=== PATIENT | male | born 1965 | race Caucasian/White ===

== ENCOUNTER 2023-02-20 13:06 | Inpatient (IN) | payer BC ==
[~2023-02-20] VITALS: Ht 175.3 cm; Wt 62.0 kg
[2023-02-20] VITALS (9 sets, daily range): BP systolic 84–118; BP diastolic 55–80; TEMP 98.2; O2SAT 98–100
[2023-02-20] MEDS ORDERED: VANCOMYCIN IV 1,000 MG in IV DEXTROSE 5% 250 ML IV ONE (13:30)
[2023-02-20] MEDS ORDERED: PIPERACILLIN SODIUM/TAZOBACTAM 3.375 G in IV DEXTROSE 5% 50 ML IV ONE (13:30)
[2023-02-20] MEDS ORDERED: IV NORMAL SALINE 1000 ML BAG IV ONE ×2 (13:30→14:00)
[2023-02-20] MEDS ORDERED: ACETAMINOPHEN 650 MG SUPP.RECT RC ONE (13:30)
[2023-02-20 13:43] LABS: BASOPHILS # (AUTO) 0.1 K/UL (0.0-0.2); BASOPHILS % (AUTO) 0.4 % (0.0-2.0); EOSINOPHILS % (AUTO) 0.1 % (0.0-7.0); HEMATOCRIT 39.9 % (36.7-47.1); HEMOGLOBIN 13.2 g/dL (12.5-16.3); LYMPHOCYTES # (AUTO) 1.2 K/uL (0.8-4.8); LYMPHOCYTES % (AUTO) 5.8 % (20.5-51.5); MEAN CORPUSCULAR HGB CONC 33 g/dL (32.5-36.3); MEAN CORPUSCULAR VOLUME 87.7 fL (73.0-96.2); MONOCYTES # (AUTO) 1.7 K/uL (0.1-1.30); MONOCYTES % (AUTO) 8.1 % (0.0-11.0); NEUTROPHILS # (AUTO) 18.4 K/uL (1.8-8.9); NEUTROPHILS % (AUTO) 85.6 % (38.5-71.5); PLATELET COUNT (AUTO) 360 K/uL (152-348); RED BLOOD CELL COUNT(AUTO) 4.54 MIL/uL (4.06-5.63); RED CELL DISTRIBUTION WIDTH 13.1 % (12.1-16.2); WHITE BLOOD COUNT (AUTO) 21.5 K/uL (3.6-10.2)
[2023-02-20 13:45] LABS: DIFFERENTIAL COMMENT 1
[2023-02-20 13:59] LABS: AMMONIA < 10 umol/L (11-32)
[2023-02-20 14:00] LABS: CARBON DIOXIDE 28 mmol/L (21-32); CHLORIDE 103 mmol/L (98-107); GLUCOSE 178 mg/dL (74-106); SODIUM SERUM 142 mmol/L (136-145); UREA NITROGEN, BLOOD 18 mg/dL (7-18)
[2023-02-20 14:08] LABS: THYROID STIMULATING HORMONE 0.674 mIU/mL (0.358-3.740)
[2023-02-20] MEDS ORDERED: QUET200T PO (14:08)
[2023-02-20] MEDS ORDERED: SENN8.6T19 PO (14:08)
[2023-02-20] MEDS ORDERED: DIVA-78 PO (14:08)
[2023-02-20] MEDS ORDERED: QUET50TA PO (14:08)
[2023-02-20] MEDS ORDERED: RISP1TAB97 PO (14:08)
[2023-02-20] MEDS ORDERED: TRAZ150T75 PO (14:08)
[2023-02-20] MEDS ORDERED: QUET100T PO (14:08)
[2023-02-20] MEDS ORDERED: CYAN250010 PO (14:08)
[2023-02-20] MEDS ORDERED: AMLO2.5T4 PO (14:08)
[2023-02-20] MEDS ORDERED: MIRT7.5T10 PO (14:08)
[2023-02-20] MEDS ORDERED: TEMA30CA PO (14:08)
[2023-02-20] MEDS ORDERED: ESCI-9 PO (14:08)
[2023-02-20] MEDS ORDERED: BRIV100T PO (14:08)
[2023-02-20 14:15] LABS: ALANINE AMINOTRANSFERASE 233 U/L (16-63); ALBUMIN 1.7 g/dL (3.4-5.0); ALKALINE PHOSPHATASE 116 U/L (50-136); ASPARTATE AMINOTRANSFERASE 87 U/L (15-37); BILIRUBIN,DIRECT 0.2 mg/dL (0.0-0.2); BILIRUBIN,TOTAL 0.3 mg/dL (0.2-1.0); TOTAL PROTEIN, SERUM 7.4 g/dL (6.4-8.2)
[2023-02-20 14:27] LABS: LACTIC ACID 2.2 mmol/L (0.4-2.0)
[2023-02-20] MEDS ORDERED: HYDR50TA62 PO (14:32)
[2023-02-20] MEDS ORDERED: ROSU5TAB PO (14:32)
[2023-02-20] MEDS ORDERED: LORA0.5T48 PO (14:32)
[2023-02-20] MEDS ORDERED: VANCOMYCIN IV 200 ML ONE (14:37)
[2023-02-20] MEDS ORDERED: PIPERACILLIN/TAZOBACTAM/D5W 50 ML IV ONE ×3 (14:37→22:08)
[2023-02-20] MEDS ORDERED: ACETAMINOPHEN 325 MG SUPP ONE (14:38)
[2023-02-20] MEDS ORDERED: NOREPINEPHRINE BITARTRATE 8 MG in IV NORMAL SALINE 250 ML IV ONE (16:15)
[2023-02-20] MEDS ORDERED: NOREPINEPHRINE BITARTRATE 4 MG/4 ML VIAL IV ONE (16:26)
[2023-02-20] MEDS ORDERED: IV NS 1000 ML 1,000 ML IV PRN (22:00)
[2023-02-20] MEDS ORDERED: REMEDY ESSENTIAL ZINC PASTE 113 GM TP PRN (22:00)
[2023-02-20] MEDS ORDERED: ONDANSETRON 4 MG/2 ML VIAL IV PRN (22:00)
[2023-02-20] MEDS ORDERED: ACETAMINOPHEN 325 MG TABLET PO PRN (22:00)
[2023-02-20 22:10] LABS: *BILIRUBIN,URIN NEGATIVE (NEGATIVE); *BLOOD, URINE 2+ (NEGATIVE); *CLARITY,URINE CLEAR (CLEAR); *COLOR,URINE YELLOW (YELLOW); *KETONES,URINE NEGATIVE (NEGATIVE); *PROTEIN,URINE 2+ (NEGATIVE); LEUKOCYTE ESTERASE ,URINE NEGATIVE (NEGATIVE); NITRITE, URINE NEGATIVE (NEGATIVE); UGLUCOSE NEGATIVE (NEGATIVE)
[2023-02-20] MEDS: PIPERACILLIN SODIUM/TAZOBACTAM 3.375 G in IV DEXTROSE 5% 50 ML IV SCH (22:29)
[2023-02-20] MEDS: PANTOPRAZOLE SODIUM 40 MG VIAL IV SCH (22:29)
[2023-02-20] MEDS ORDERED: NOREPINEPHRINE BITARTRATE 8 MG in IV NORMAL SALINE 242 ML IV PRN (22:30)
[2023-02-21] VITALS (25 sets, daily range): BP systolic 88–132; BP diastolic 49–78; TEMP 97.6–99; O2SAT 92–100
[2023-02-21 01:30] LABS: WBC,URINE NONE SEEN /HPF (0-3)
[2023-02-21 01:31] LABS: BACTERIA,URINE FEW /HPF (NONE SEEN); SQUAMOUS EPITHELIAL CELL,UR MODERATE /HPF (NONE SEEN)
[2023-02-21] MEDS: PIPERACILLIN SODIUM/TAZOBACTAM 3.375 G in IV DEXTROSE 5% 50 ML IV SCH (03:56)
[2023-02-21 05:44] LABS: BASOPHILS # (AUTO) 0.1 K/UL (0.0-0.2); BASOPHILS % (AUTO) 0.4 % (0.0-2.0); EOSINOPHILS % (AUTO) 0.2 % (0.0-7.0); HEMATOCRIT 31.7 % (36.7-47.1); HEMOGLOBIN 10.6 g/dL (12.5-16.3); LYMPHOCYTES % (AUTO) 5.4 % (20.5-51.5); MEAN CORPUSCULAR HEMOGLOBIN 29.2 uug (23.8-33.4); MEAN CORPUSCULAR HGB CONC 34 g/dL (32.5-36.3); MEAN CORPUSCULAR VOLUME 87.1 fL (73.0-96.2); MONOCYTES # (AUTO) 1.8 K/uL (0.1-1.30); MONOCYTES % (AUTO) 9.5 % (0.0-11.0); NEUTROPHILS # (AUTO) 16.3 K/uL (1.8-8.9); NEUTROPHILS % (AUTO) 84.5 % (38.5-71.5); PLATELET COUNT (AUTO) 287 K/uL (152-348); RED BLOOD CELL COUNT(AUTO) 3.64 MIL/uL (4.06-5.63); RED CELL DISTRIBUTION WIDTH 13.1 % (12.1-16.2); WHITE BLOOD COUNT (AUTO) 19.3 K/uL (3.6-10.2)
[2023-02-21 05:52] LABS: DIFFERENTIAL COMMENT 1
[2023-02-21 06:01] LABS: CALCIUM 7.5 mg/dL (8.5-10.1); CREATININE 0.8 mg/dL (0.6-1.3); MAGNESIUM 1.9 mg/dL (1.8-2.4); PHOSPHOROUS 3.4 mg/dL (2.5-4.9); POTASSIUM 3.5 mmol/L (3.5-5.1)
[2023-02-21] MEDS ORDERED: LORAZEPAM 2 MG/1 ML VIAL ONE ×3 (07:57→18:16)
[2023-02-21] MEDS ORDERED: LORAZEPAM 2 MG/1 ML VIAL IV PRN (08:00)
[2023-02-21] MEDS ORDERED: PANTOPRAZOLE SODIUM 40 MG VIAL ONE (08:17)
[2023-02-21] MEDS: PANTOPRAZOLE SODIUM 40 MG VIAL IV SCH (08:27)
[2023-02-21] MEDS ORDERED: ACETAMINOPHEN 325 MG SUPP ONE (09:40)
[2023-02-21] MEDS ORDERED: PIPERACILLIN SODIUM/TAZOBACTAM 3.375 G in IV DEXTROSE 5% 50 ML IV SCH (12:00)
[2023-02-21] MEDS ORDERED: PIPERACILLIN SODIUM/TAZOBACTAM 3.375 G in IV DEXTROSE 5% 100 ML IV SCH (12:00)
[2023-02-21] MEDS: LORAZEPAM 2 MG/1 ML VIAL IV PRN ×2 (15:23→18:25)
[2023-02-21] MEDS ORDERED: MORPHINE SULFATE 2 MG/1 ML DISP.SYRIN ONE (16:10)
[2023-02-21] MEDS: MORPHINE SULFATE 2 MG/1 ML DISP.SYRIN IV PRN ×2 (16:35→19:06)
[2023-02-22 04:00] VITALS: BP 93/52; TEMP 98.5; O2SAT 91
[2023-02-22] MEDS: MORPHINE SULFATE 2 MG/1 ML DISP.SYRIN IV PRN ×3 (05:31→12:08)
[2023-02-22 06:50] LABS: BASOPHILS # (AUTO) 0.1 K/UL (0.0-0.2); BASOPHILS % (AUTO) 0.5 % (0.0-2.0); EOSINOPHILS % (AUTO) 0.3 % (0.0-7.0); HEMATOCRIT 33.4 % (36.7-47.1); HEMOGLOBIN 11.3 g/dL (12.5-16.3); LYMPHOCYTES # (AUTO) 1.2 K/uL (0.8-4.8); LYMPHOCYTES % (AUTO) 6.3 % (20.5-51.5); MEAN CORPUSCULAR HEMOGLOBIN 29.4 uug (23.8-33.4); MEAN CORPUSCULAR HGB CONC 34 g/dL (32.5-36.3); MEAN CORPUSCULAR VOLUME 86.9 fL (73.0-96.2); MONOCYTES # (AUTO) 1.6 K/uL (0.1-1.30); MONOCYTES % (AUTO) 8.7 % (0.0-11.0); NEUTROPHILS # (AUTO) 15.9 K/uL (1.8-8.9); NEUTROPHILS % (AUTO) 84.2 % (38.5-71.5); PLATELET COUNT (AUTO) 295 K/uL (152-348); RED BLOOD CELL COUNT(AUTO) 3.84 MIL/uL (4.06-5.63); RED CELL DISTRIBUTION WIDTH 13.4 % (12.1-16.2); WHITE BLOOD COUNT (AUTO) 18.8 K/uL (3.6-10.2)
[2023-02-22 06:55] LABS: DIFFERENTIAL COMMENT 1
[2023-02-22 07:26] LABS: CREATININE 0.9 mg/dL (0.6-1.3); PHOSPHOROUS 3.9 mg/dL (2.5-4.9); POTASSIUM 4.1 mmol/L (3.5-5.1)
[2023-02-22] MEDS: LORAZEPAM 2 MG/1 ML VIAL IV PRN ×5 (07:36→20:14)
[2023-02-22 11:30] VITALS: BP 97/52; TEMP 98.3; O2SAT 92
[2023-02-22] MEDS: MORPHINE SULFATE PF IV DRIP 100 MG in IV DEXTROSE 5% 96 ML IV PRN (14:02)
[2023-02-22 14:30] VITALS: TEMP 99.9
[2023-02-22] MEDS: ACETAMINOPHEN 650 MG SUPP.RECT RC PRN (14:49)
[2023-02-22] MEDS: POLYVINYL ALCOHOL OPHT DROPS 15 ML BOTTLE EACHEYE PRN (15:08)
[2023-02-22 16:00] VITALS: BP 92/56; TEMP 98.2; O2SAT 90
[2023-02-22 20:00] VITALS: BP 93/52; TEMP 98.5; O2SAT 94
[2023-02-23] MEDS: MORPHINE SULFATE PF IV DRIP 100 MG in IV DEXTROSE 5% 96 ML IV PRN ×3 (00:13→17:14)
[2023-02-23] MEDS: LORAZEPAM 2 MG/1 ML VIAL IV PRN ×3 (02:58→16:28)
[2023-02-23] MEDS: ACETAMINOPHEN 650 MG SUPP.RECT RC PRN (02:59)
[2023-02-23 03:53] VITALS: BP 98/65; TEMP 100.2; O2SAT 98
[2023-02-23] MEDS ORDERED: SCOPOLAMINE PATCH 1 MG/72 HRS PATCH TD SCH (09:00)
[2023-02-23] MEDS: POLYVINYL ALCOHOL OPHT DROPS 15 ML BOTTLE EACHEYE PRN (10:18)
[2023-02-23 11:20] VITALS: BP 98/65; TEMP 103.7; O2SAT 85
[2023-02-23 13:30] VITALS: TEMP 102
[2023-02-23 18:14] VITALS: TEMP 100
[2023-02-23 20:00] VITALS: TEMP 98.1
[2023-02-24] MEDS: MORPHINE SULFATE PF IV DRIP 100 MG in IV DEXTROSE 5% 96 ML IV PRN ×6 (00:29→23:23)
[2023-02-24 06:24] VITALS: BP 160/88
[2023-02-24] MEDS: LORAZEPAM 2 MG/1 ML VIAL IV PRN ×3 (09:37→22:14)
[2023-02-24 18:17] VITALS: BP 93/58; TEMP 102.8; O2SAT 92
[2023-02-24] MEDS: POLYVINYL ALCOHOL OPHT DROPS 15 ML BOTTLE EACHEYE PRN (22:18)
[2023-02-25] MEDS: LORAZEPAM 2 MG/1 ML VIAL IV PRN (03:13)
== END 2023-02-25 07:08 | DRG 871 ==
LOC: ER 13:06 → TRANSITION 20:44 → MEDSURG3 02-21 18:33
PROVIDERS: ADMIT Nurse Practitioner Acute Care; ATTEND Nurse Practitioner Acute Care
PROC: 02HV33Z Insertion of Infusion Device into Superior Vena Cava, Percutaneous Approach (ICD-10-PCS; principal; 2023-02-20)
PROC: B548ZZA Ultrasonography of Superior Vena Cava, Guidance (ICD-10-PCS; 2023-02-20)
DX: A41.9 Sepsis, unspecified organism (principal); E43 Unspecified severe protein-calorie malnutrition; G93.41 Metabolic encephalopathy; J86.9 Pyothorax without fistula; R65.21 Severe sepsis with septic shock; J15.6 Pneumonia due to other Gram-negative bacteria; D68.69 Other thrombophilia; J91.8 Pleural effusion in other conditions classified elsewhere; J98.11 Atelectasis; Z51.5 Encounter for palliative care; E86.0 Dehydration; Z74.09 Other reduced mobility; E78.5 Hyperlipidemia, unspecified; F03.90 Unspecified dementia, unspecified severity, without behavioral disturbance, psychotic disturbance, mood disturbance, and anxiety; I10 Essential (primary) hypertension; Z66 Do not resuscitate; Z86.73 Personal history of transient ischemic attack (TIA), and cerebral infarction without residual deficits; F09 Unspecified mental disorder due to known physiological condition; E88.09 Other disorders of plasma-protein metabolism, not elsewhere classified; Z68.20 Body mass index [BMI] 20.0-20.9, adult
CPT/HCPCS: 36415; 70450; 71045; 71250; 83605; 83735; 84100; 84443; 84484; 85025; 85730; 87040; 93005; 93880; A4663; C1758; C9113; G0378; J2060; J2270; J2274; J2405; J2543; J3370; J3490; J7040